=== PATIENT | male | born 1990 | race Caucasian/White ===

== ENCOUNTER 2018-06-10 15:50 | Emergency (ER) | payer MEDICAID, OTHER ==
--- NOTE | 2018-06-10 16:48 | EDPHY ---
H & P Stated Complaint: R lower abd pain since this am Time Seen by Provider: 06/10/18 16:47 - Medical/Surgical History Hx Asthma: No Hx Chronic Respiratory Disease: No Hx Diabetes: No Hx Cardiac Disease: No Hx Renal Disease: No Hx Cirrhosis: No Hx Alcoholism: No Hx HIV/AIDS: No Hx Splenectomy or Spleen Trauma: No Other PMH: [id number] - Social History Smoking Status: Never smoked Constitutional: Initial Vital Signs Temperature (C) 36.7 C 06/10/18 15:56 Heart Rate 87 06/10/18 15:56 Respiratory Rate 18 06/10/18 15:56 Blood Pressure 151/100 H 06/10/18 15:56 O2 Sat (%) 98 06/10/18 15:56 O2 Delivery Mode Room Air Allergies/Adverse Reactions: acetaminophen [From Tylenol] Allergy (Verified 06/10/18 15:56) Home Medications: Medication Instructions Recorded Alprazolam 06/10/18 Medical Decision Making ED Course/Re-evaluation: CHIEF COMPLAINT: HISTORY OF PRESENT ILLNESS: must have 4 elements: Location, Quality, Severity , Duration, Timing, Context, Modifying Factors, Associated Signs and Symptoms REVIEW OF SYSTEMS: A comprehensive 10 system review of systems is otherwise negative aside from elements mentioned in the history of present illness and medical decision making. PHYSICAL EXAM: HR, BP, O2 Sat, RR. Temp noted General Appearance: Alert, well hydrated, appropriate, and non-toxic appearing. Head: Atraumatic without scalp tenderness or obvious injury Eyes: Pupils equal, round, reactive to light and accommodation, EOMI, no trauma , no injection. Ears: Clear bilaterally, no perforation, normal landmarks Nose: Atraumatic, no rhinorrhea, clear. Throat: There is no erythema or exudates, no lesions, normal tonsils, mucus membranes moist. Neck: Supple, 2+ carotid upstroke, nontender, no lymphadenopathy. Respiratory: No retractions, no distress, no wheezes, and no accessory muscle use. Lungs are clear to auscultation bilaterally. Cardiovascular: Regular rate and rhythm, no murmurs, rubs, or gallops. Bilateral carotid, radial, dorsalis pedis, and posterior tibial pulses intact. Good capillary refill all extremities. Gastrointestinal: Abdomen is soft, nontender, non-distended, no masses, no rebound, no guarding, no peritoneal signs. Musculoskeletal: Normal active ROM of all extremities, atraumatic. Neurological: Alert, appropriate, and interactive. The patient has normal DTRs and non-focal cranial nerves, motor, sensory, and cerebellar exam. Skin: No rashes, good turgor, no nodules on palpation. Past medical history: Past surgical history: Family history: Social history: DIAGNOSTICS/PROCEDURES/CRITICAL CARE TIME: DIFFERENTIAL DIAGNOSIS: MEDICAL DECISION MAKING: Departure - Departure Referrals: NONE *PRIMARY CARE P,. [Primary Care Provider] - As per Instructions
--- NOTE | 2018-06-10 16:48 | EDPHY ---
H & P Stated Complaint: R lower abd pain since this am Time Seen by Provider: 06/10/18 16:47 HPI/ROS: CHIEF COMPLAINT: RLQ pain HISTORY OF PRESENT ILLNESS: The patient is a 28 y/o male with a history of appendectomy and prior opiate abuse arriving from urgent care complaining of progressive RLQ pain since waking yesterday. His pain is primarily in his right lower quadrant and is significantly aggravated by any movement including bumps in the road on the ride over. He denies fever, nausea, vomiting, diarrhea, flank pain, hematuria, or dysuria. He had a naloxone implant in his right lower abdomen in January that he reports should have dissolved by now. He tovar not wanted to eat or drink today. REVIEW OF SYSTEMS: A ten system review of systems was performed and is negative with the exception of the items mentioned in the HPI. 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 Owns a cannabis business. General Appearance: Alert. Vital signs reviewed. Blood pressure 151/100 in triage. Eyes: Pupils equal and round, no conjunctival injection, no discharge. Anicteric. ENT, Mouth: Mucous membranes are moist, no oropharyngeal erythema or edema. Neck: No lymphadenopathy, supple. Respiratory: Lungs are clear to auscultation; no wheezes, rales, or rhonchi. Cardiovascular: Regular rate and rhythm; no murmur, rub, or gallop. Gastrointestinal: Abdomen is soft severely tender in RLQ with guarding, no masses or organomegaly. Skin: Warm and dry, no rashes on exposed skin, normal color. Back: Nontender to palpation over the thoracolumbar spine. No CVAT. Extremities: No lower extremity edema, no calf tenderness or swelling. Neurological: Alert and oriented. Moving all four extremities easily and equally. Psychiatric: Normal affect. - Medical/Surgical History Hx Asthma: No Hx Chronic Respiratory Disease: No Hx Diabetes: No Hx Cardiac Disease: No Hx Renal Disease: No Hx Cirrhosis: No Hx Alcoholism: No Hx HIV/AIDS: No Hx Splenectomy or Spleen Trauma: No Other PMH: app1999 - Social History Smoking Status: Never smoked Constitutional: Initial Vital Signs Temperature (C) 36.7 C 06/10/18 15:56 Heart Rate 87 06/10/18 15:56 Respiratory Rate 18 06/10/18 15:56 Blood Pressure 151/100 H 06/10/18 15:56 O2 Sat (%) 98 06/10/18 15:56 O2 Delivery Mode Room Air Allergies/Adverse Reactions: acetaminophen [From Tylenol] Allergy (Verified 06/10/18 15:56) Home Medications: Medication Instructions Recorded ALPRAZolam [Xanax 1 MG (*)] 1 mg PO TID PRN 06/10/18 Cephalexin [Keflex] 500 mg PO TID #20 cap 06/10/18 Doxycycline Hyclate [Doxycycline] 100 mg PO BID #13 cap 06/10/18 Medical Decision Making - Diagnostics Imaging: Discussed imaging studies w/ sonography technician Radiologist, I viewed and interpreted images myself ED Course/Re-evaluation: This is a 28 y/o male with a history of an appendectomy and opiate abuse who presents with a 1-day history of constant RLQ pain. He has RLQ tenderness with guarding on exam. Plan for IV, labs, UA, abdominal CT, symptom management. 1L IV NS and 15mg IV Ketorolac ordered. CT shows small superficial fluid collection in right lower abdomen with inflammatory changes. CT reviewed by me. Does not appear to be any fluid that could be drained. In discussion with the patient, and in reexamination of his abdomen, I feel that he needs admission for pain control. He will require antibiotics for what appears to be a cellulitis. I spoke with him about his pain medication preferences. He had little response to the Toradol. He has a history of opiate abuse but feels that it is not a problem for him to receive opiate pain medication in this instance. He is given Dilaudid 1 mg IV in the emergency department. 1gm IV Ceftriaxone ordered for cellulitis. Spoke with hospitalist service, Dr. Barth accepts admission. 1954: Reassessed patient. After receiving a dose of Dilaudid, he has decided he would like to leave the ED. He is concerned because he has no one to help take care of his dog and he does not have insurance. As expected, he is no longer experiencing debilitating abdominal pain. He understands that he will not receive a prescription for opiate pain medication. He tells me that that is fine with him. Given his history of opiate abuse in the past I am concerned about this quick turnaround in his symptoms. His abdomen remains mildly tender in the right lower quadrant, without guarding at the time of my final exam, just prior to his leaving the department. He is given referrals to a primary care physician and [facility]. He is given prescriptions for doxycycline and Keflex. Clear follow-up plan was outlined with him. Danger signs that should prompt him to be re-evaluated were reviewed with him. A search of [facility] reveals no prescriptions for opiates. He has prescriptions for alprazolam, which he tells me he takes. He is noted to be hypertensive in the department and is advised to have this followed up with a primary care physician. Differential Diagnosis: I considered a differential diagnosis that includes but is not limited to cellulitis, abscess, bowel obstruction, ureterolithiasis, urinary tract infection, hernia, drug-seeking behavior. - Data Points Laboratory Results: Laboratory Results 06/10/18 17:25 06/10/18 17:25 Medications Given: Discontinued Medications Hydromorphone HCl (Dilaudid) 1 mg IVP EDNOW ONE Stop: 06/10/18 18:53 Last Admin: 06/10/18 19:08 Dose: 1 mg Sodium Chloride (Ns) 1,000 mls @ 0 mls/hr IV EDNOW ONE; Wide Open PRN Reason: Protocol Stop: 06/10/18 17:09 Last Admin: 06/10/18 17:29 Dose: 1,000 mls Ceftriaxone Sodium/Dextrose (Rocephin 1 Gm (Premix)) 50 mls @ 100 mls/hr IV EDNOW ONE PRN Reason: Protocol Stop: 06/10/18 19:21 Last Admin: 06/10/18 19:07 Dose: 50 mls Ketorolac Tromethamine (Toradol) 15 mg IVP EDNOW ONE Stop: 06/10/18 17:09 Last Admin: 06/10/18 17:30 Dose: 15 mg Departure - Departure Disposition: Home, Routine, Self-Care Clinical Impression: Cellulitis Condition: Good Instructions: Cephalexin (By mouth), Doxycycline (By mouth), Cellulitis (ED) Additional Instructions: 1. Take Keflex and doxycycline antibiotics as prescribed. Be sure to complete the entire prescription even if symptoms have resolved. Doxycycline will make your skin sensitive to the skin, avoid sun exposure while using this medication. 2. Follow up with the [facility] for reevaluation of your infection in the next 2-3 days without fail. 3. Take 600mg ibuprofen every 8 hours as needed for pain over the next few days. You received a similar medication here tonight and should wait until tomorrow to take another dose. 4. Return to the ED for worsening of condition. Referrals: [facility] (ED,. [Edm Groups for Call Sched] - NONE *PRIMARY CARE P,. [Primary Care Provider] - As per Instructions Prescriptions: Cephalexin [Keflex] 500 mg PO TID #20 cap Doxycycline Hyclate [Doxycycline] 100 mg PO BID #13 cap Report Scribed for: Socorro Garcia Report Scribed by: Veronique Robert Date of Report: 06/10/18 Time of Report: 18:09 Physician Review and Approval Statement: 06/10/18 16:48 Portions of this note were transcribed by the certified medical technician assistant. I, Dr. Socorro Garcia, personally performed the history, physical exam, and medical decision- making; and confirmed the accuracy of the information in the transcribed note.
[2018-06-10] MEDS ORDERED: NS 1,000 ML IV ONE (17:08)
[2018-06-10] MEDS ORDERED: KETOROLAC 30 MG/1 ML SDV IVP ONE (17:08)
[2018-06-10 17:46] LABS: PLATELET COUNT 168 10^3/uL (150-400)
[2018-06-10] MEDS ORDERED: IOPAMIDOL (ISOVUE-300) 100 ML BTL ONE (18:07)
[2018-06-10] MEDS ORDERED: HYDROmorphONE/DILAUDID 2 MG/ML INJ IVP ONE (18:52)
[2018-06-10] MEDS ORDERED: ONDANSETRON 4 MG/2 ML VIAL IVP PRN (19:17)
[2018-06-10] MEDS ORDERED: ONDANSETRON DISINTEGRATING 4 MG TAB PO PRN (19:17)
[2018-06-10 20:24] VITALS: BP 129/92
== END 2018-06-10 20:29 | disposition home or self-care (01) ==
LOC: UNDOADMOB 18:57
DX: L03.311 Cellulitis of abdominal wall (principal); E86.9 Volume depletion, unspecified; Z90.89 Acquired absence of other organs
CPT/HCPCS: 96365; J0696; J1170; J1885; Q9967